=== PATIENT | male | born 1955 | race Caucasian/White ===

== ENCOUNTER 2025-05-27 11:42 | Emergency (ER) | payer MEDICARE, BC ==
[2025-05-27 12:59] LABS: INR 1.0
[2025-05-27 13:06] LABS: A/G RATIO 1.0 (1.2-2.2); ALANINE AMINOTRANSFERASE,ALT 34 U/L (12-78); ASPARTATE AMNIOTRANSFERASE,AST 23 U/L (15-37); BILIRUBIN TOTAL 0.7 mg/dL (0.2-1.0); BLOOD UREA NITROGEN,BUN 12 mg/dL (7-18); CARBON DIOXIDE,CO2 32 mmol/L (21-32); CHLORIDE,CL 94 mmol/L (100-108); CREATININE 0.9 mg/dL (0.8-1.3); EST CRCL DRUG DOSING (CG) 72.83 mL/min; ESTIMATED GFR 91 mL/min (>60); GLUCOSE RANDOM 101 mg/dL (74-106); POTASSIUM,K 3.3 mmol/L (3.6-5.2); PROTEIN TOTAL,TP 7.8 g/dL (6.4-8.2); SODIUM,NA 134 mmol/L (140-148)
[2025-05-27] MEDS: Iopamidol 755 Mg/ML 100 ML Bottle IV SCH (13:32)
== END 2025-05-27 16:42 | disposition home or self-care (01) ==
LOC: JP.ED 11:42 → MERGE 11:42 → JP.ED 16:42
DX: I65.23 Occlusion and stenosis of bilateral carotid arteries (principal); I10 Essential (primary) hypertension; Z79.899 Other long term (current) drug therapy
CPT/HCPCS: 36415; 70450; 70496; 70498; 80053; 85610; 93005; 99284; Q9967